=== PATIENT | female | born 1975 | race Hispanic/Latino ===

== ENCOUNTER 2017-06-22 01:03 | Emergency (ER) | payer OTHER ==
[2017-06-22 01:36] VITALS: RESP 16; O2SAT 100
--- NOTE | 2017-06-22 03:40 | ED PDOC ---
Upper Extremity Pain/Injury Time Seen by Provider: 06/22/17 01:43 Chief Complaint (Nursing): Upper Extremity Problem/Injury Chief Complaint (Provider): neck pain History Per: Patient History/Exam Limitations: no limitations Onset/Duration Of Symptoms: Days (2x) Current Symptoms Are (Timing): Still Present Quality: "Pain" Additional Complaint(s): 41 year old female presents to the ED complaining of atraumatic neck pain radiating to the left arm onset two days ago. Along with neck pain, she has throat pain worse with swallowing. Patient has a long history of neck problems. She has been to the orthopedist in the past without MRI performed and limited xray. States she has been to chiropractors who required adjustments but has not had an adjustment for at least a year. Reports he took Advil and Naproxen without any relief. Denies fever, head injury, chest pain, weakness, or shortness of breath. PMD: No Family Provider Past Medical History Reviewed: Historical Data, Nursing Documentation, Vital Signs Vital Signs: Last Vital Signs Temp 98.4 F 06/22/17 01:33 Pulse 98 H 06/22/17 01:33 Resp 16 06/22/17 01:33 BP 124/80 06/22/17 01:33 Pulse Ox 100 06/22/17 01:33 - Medical History Other PMH: neck pain - Surgical History Surgical History: - Family History Family History: States: Unknown Family Hx - Social History Ex-Smoker (has not smoked in the last 12 months): No Alcohol: None Drugs: Denies - Home Medications Home Medications: Ambulatory Orders Medication Instructions Recorded Cyclobenzaprine [Cyclobenzaprine 10 mg PO Q8 PRN #14 tab 06/22/17 HCl] Meloxicam [Mobic] 7.5 mg PO DAILY PRN #14 tab 06/22/17 - Allergies Allergies/Adverse Reactions: Allergies Allergy/AdvReac Type Severity Reaction Status Date / Time No Known Allergies Allergy Verified 06/22/17 01:36 Review of Systems ROS Statement: Except As Marked, All Systems Reviewed And Found Negative Constitutional: Negative for: Fever ENT: Positive for: Throat Pain (worse with swallowing) Cardiovascular: Negative for: Chest Pain Respiratory: Negative for: Shortness of Breath Musculoskeletal: Positive for: Neck Pain, Arm Pain (left) Neurological: Negative for: Weakness, Other (head injury) Physical Exam - Reviewed Nursing Documentation Reviewed: Yes Vital Signs Reviewed: Yes - Physical Exam Appears: Positive for: Well, Non-toxic, In Acute Distress (Moderate painful ) Head Exam: Positive for: ATRAUMATIC, NORMAL INSPECTION, NORMOCEPHALIC Skin: Positive for: Normal Color, Warm, Dry Eye Exam: Positive for: EOMI, Normal appearance, PERRL ENT: Positive for: Normal ENT Inspection, Pharyngeal Erythema. Negative for: Tonsillar Exudate, Tonsillar Swelling Neck: Positive for: Normal, Painless ROM, Supple. Negative for: Decreased ROM Cardiovascular/Chest: Positive for: Regular Rate, Rhythm. Negative for: Murmur Respiratory: Positive for: Normal Breath Sounds. Negative for: Decreased Breath Sounds, Accessory Muscle Use, Respiratory Distress Pulses-Radial (L): 2+ Pulses-Radial (R): 2+ Gastrointestinal/Abdominal: Positive for: Normal Exam, Bowel Sounds, Soft. Negative for: Tenderness, Guarding Back: Positive for: Normal Inspection, Muscle Spasm (left sided paracervical muscle spasm with tenderness). Negative for: Other (midline tenderness ) Extremity: Positive for: Normal ROM. Negative for: Tenderness, Pedal Edema, Deformity Neurologic/Psych: Positive for: Alert, Oriented (x3), Motor/Sensory Deficits ( Equal caddy packer strength bilateral ) - ECG O2 Sat by Pulse Oximetry: 100 (RA) Pulse Ox Interpretation: Normal - Progress ED Course And Treament: CT cervical spine w/o contrast: Small, chronic-appearing bony densities abutting the anterior arch of C1. 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 No acute cervical spine fractures visualized. No significant vertebral subluxation seen on the sagittal reformatted images. No evidence of acute facet dislocation; Minimal to mild degenerative disc disease at C3-4, C5-6, and C6-7. Medical Decision Making Medical Decision Making: Time: 157 Initial Plan: --Cervical Spine w/o contrast [CT] --ED urine --Toradol 30mg --Valium 5mg --Throat culture --Rapid strep group A antigen --Reevaluation Scribe Attestation: Documented by Marcello Perez, acting as a scribe for Robert Gauthier PA-C Provider Scribe Attestation: All medical record entries made by the Scribe were at my direction and personally dictated by me. I have reviewed the chart and agree that the record accurately reflects my personal performance of the history, physical exam, medical decision making, and the department course for this patient. I have also personally directed, reviewed, and agree with the discharge instructions and disposition. Disposition - Clinical Impression Clinical Impression: Cervical radiculopathy - Patient ED Disposition Is Patient to be Admitted: No - Disposition Referrals: [facility] [Outside] Disposition: Routine/Home Disposition Time: 04:05 Condition: IMPROVED Prescriptions: Cyclobenzaprine [Cyclobenzaprine HCl] 10 mg PO Q8 PRN #14 tab PRN Reason: Muscle Spasm Meloxicam [Mobic] 7.5 mg PO DAILY PRN #14 tab PRN Reason: Pain, Mild (1-3) Instructions: Radiculopathy (DC), Torticollis (DC) Forms: [facility] Mckeon (Welsh), [facility] ED School/Work Excuse Print Language: NAMIBIAN
--- NOTE | 2017-06-22 03:59 | CT ---
EXAM: CT Cervical Spine Without Intravenous Contrast EXAM DATE/TIME: 06/22/2017 1:58 AM CLINICAL HISTORY: 41 years old, female; Pain; Neck pain TECHNIQUE: Axial computed tomography images of the cervical spine without intravenous contrast. All CT scans at this facility use one or more dose reduction techniques, viz.: automated exposure control; ma/kV adjustment per patient size (including targeted exams where dose is matched to indication; i.e. head); or iterative reconstruction technique. Coronal and sagittal reformatted images were created and reviewed. COMPARISON: No relevant prior studies available. FINDINGS: VERTEBRAE: Small, chronic-appearing bony densities abutting the anterior arch of C1. 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 No acute cervical spine fractures visualized. No significant vertebral subluxation seen on the sagittal reformatted images. No evidence of acute facet dislocation. DISCS/SPINAL CANAL/NEURAL FORAMINA: Minimal to mild degenerative disc disease at C3-4, C5-6, and C6-7. SOFT TISSUES: No acute abnormality of the visualized soft tissues is seen. LUNG APICES: No pneumothorax seen. IMPRESSION: - No acute cervical spine fractures identified. - See above for remaining findings.
[2017-06-22 04:59] VITALS: BP 117/58; PULSE 85; TEMP 97.8
== END 2017-06-22 05:00 | disposition home or self-care (01) ==
LOC: H.ER 01:03
DX: M54.12 Radiculopathy, cervical region (principal)
CPT/HCPCS: 72125; 81025; 87070; 87430; 96372; 99284; J1885